=== PATIENT | male | born 1960 | race Hispanic/Latino ===

== ENCOUNTER 2019-04-18 06:13 | Day surgery (SDC) | payer OTHER ==
[2019-04-18] MEDS ORDERED: ECOTRIN PO ONE (06:39)
[2019-04-18] MEDS ORDERED: NACL 0.9% 500 ML 500 ML IV SCH (07:00)
[2019-04-18 07:19] LABS: Basophils % (Auto) 0.8 % (0.0-1.8); Eosinophils # (Auto) 0.2 K/mm3 (0.0-0.4); Eosinophils % (Auto) 3.3 % (0.0-4.3); Hematocrit 40.8 % (35.5-45.6); Hemoglobin 14.1 gm/dl (11.8-15.2); Lymphocytes # (Auto) 1.8 K/mm3 (1.2-5.4); Lymphocytes % (Auto) 39.1 % (13.4-35.0); Mean Corpuscular HGB Conc 35 % (32-34); Mean Corpuscular Volume 90 fl (84-94); Monocytes # (Auto) 0.4 K/mm3 (0.0-0.8); Monocytes % (Auto) 7.6 % (0.0-7.3); Platelet Count 180 K/mm3 (140-440); Red Blood Count 4.54 M/mm3 (3.65-5.03)
[2019-04-18 07:29] LABS: INR 0.93 (0.87-1.13); Partial Thromboplastin Time 23.3 Sec. (24.2-36.6)
[2019-04-18 07:31] LABS: BUN/Creatinine Ratio 19; Blood Urea Nitrogen 21 mg/dL (9-20); Calcium 9.5 mg/dL (8.4-10.2); Hemolysis Index 21
[2019-04-18] MEDS ORDERED: HEPARIN/NS 5000 UNIT/500ML(CATH LAB) 1,000 ML IR ONE (08:38)
[2019-04-18] MEDS ORDERED: HEPARIN 10,000 UNITS/10 ML ONE (08:38)
[2019-04-18] MEDS ORDERED: NITROGLYCERIN SYRINGE 3 ML ONE (08:39)
[2019-04-18] MEDS ORDERED: XYLOCAINE 2% INFILTRATI ONE (08:39)
[2019-04-18] MEDS ORDERED: CALAN ONE (08:39)
[2019-04-18] MEDS ORDERED: VERSED ONE (09:25)
[2019-04-18] MEDS ORDERED: SUBLIMAZE ONE (09:25)
--- NOTE | 2019-04-18 10:31 | Cardiac Catherization Report ---
REFERRING PHYSICIAN: Dr. Gil Sterling. INDICATION FOR PROCEDURE: The patient is an exceedingly pleasant 59-year-old gentleman with risk factors, abnormal stress test, referred for left heart catheterization. Risks, benefits, potential alternative explained at length prior to obtaining informed consent. PROCEDURE IN DETAIL: The patient was brought to the catheterization lab in a postabsorptive state, prepped and draped in sterile fashion. Geovany's test of the right hand was normal. A 2 mL of 2% lidocaine used to anesthetize the right wrist. A standard 6-Wallisian hydrophilic sheath used to cannulate the right radial artery via modified Seldinger technique. All exchanges performed to exchange a J-tip guidewire. JL3.5 catheter used to engage the left main. No dampening or ventricularization. Cineangiography performed in multiple projections. JR4 catheter used to cross the aortic valve under fluoroscopic guidance. Left ventriculography performed in 30 GARNER and 30 DAVID projections via hand injections, catheter flushed. Manual pullback performed with continuous pressure monitoring. Catheter used to engage the right coronary. No dampening or ventricularization. Cineangiography performed in all projections. Catheter removed from the body of wire, sheath removed. Manual pressure used to achieve hemostasis. I directly supervised the administration of moderate sedation with fentanyl and Versed from 9:28 to 9:50 a.m. There were no immediate complications. HEMODYNAMIC DATA: The patient remained in normal sinus rhythm throughout the procedure. Aortic pressure is 130/80, LV pressure is 130, LVEP of 15 mmHg. Left ventriculography reveals normal left ventricular systolic performance, estimated ejection fraction of 50-55%. No evidence of aortic stenosis. CORONARY ANATOMY: This is a right dominant system. Right coronary is a moderate sized vessel, courses AV groove, distally bifurcates in the posterior and posterolateral branch. No discrete stenosis noted. Left main is moderate sized vessel. No significant disease, bifurcates left anterior descending and circumflex. LAD is a moderate sized vessel, courses anterior intergroove, wraps around the apex, no significant disease in the LAD. LAD is on the smaller side. Normal tapering in the distal LAD, but no obstructive disease identified. Left circumflex, moderate sized vessel, courses AV groove. No significant disease noted. CONCLUSIONS: 1. No angiographic evidence of significant epicardial coronary disease in this right dominant system. 2. Normal left ventricular systolic performance, estimated ejection fraction of 50-55%. 3. Normal LVEDP. 4. No evidence of aortic stenosis. The patient is clinically stable. Standard radial care. Aggressive primary and secondary prevention measures. Follow up with Dr. Gil Sterling in the office. Results of procedure explained to the patient and family. All questions and concerns were addressed. JOB# [id number] LANA/HAKAN
--- NOTE | 2019-04-18 13:39 | Short Stay Summary ---
Short Stay Documentation Date of service: 04/18/19 - History H&P: obtained from office - Allergies and Medications Current Medications: Allergies No Known Allergies Allergy (Unverified 04/18/19 06:13) Home Medications Medication Instructions Recorded Confirmed Last Taken Type Lisinopril [Zestril TAB] 20 mg PO DAILY 04/18/19 04/18/19 04/17/19 History Active Medications Sodium Chloride (Nacl 0.9% 500 Ml) 500 mls @ 50 mls/hr IV DIRECT CUONG Stop: 04/18/19 16:59 Last Admin: 04/18/19 07:00 Dose: 50 mls/hr Documented by: - Brief post op/procedure progress note Date of procedure: 04/18/19 Pre-op diagnosis: abnormal stress test Post-op diagnosis: same Procedure: [facility] - see dictated cath report Anesthesia: local Estimated blood loss: none Condition: stable - Disposition Condition at discharge: Good Disposition: [id number] TO HOME OR SELFCARE - Discharge Diagnoses (1) Normal coronary arteries Status: Chronic Short Stay Discharge Plan Activity: advance as tolerated Wound: open to air, keep clean and dry, per your surgeon's advice Follow up with: PRIMARY CARE, [Primary Care Provider] - 7 Days JOY DUNAWAY MD [Staff Physician] - 7 Days Forms: CardCath PCI D/C Instructions, Work/School Excuse Out Patient
[2019-04-18 14:18] VITALS: BP 133/83
== END 2019-04-18 12:40 | disposition home or self-care (01) ==
LOC: CATHLABREC 06:13
PROVIDERS: ATTEND Internal Medicine
DX: R94.39 Abnormal result of other cardiovascular function study (principal); I10 Essential (primary) hypertension; Z79.899 Other long term (current) drug therapy; Z87.891 Personal history of nicotine dependence; Z90.5 Acquired absence of kidney; Z98.890 Other specified postprocedural states; Z85.89 Personal history of malignant neoplasm of other organs and systems; Z79.01 Long term (current) use of anticoagulants
CPT/HCPCS: 36415; 80048; 85025; 85610; 85730; 93005; 93010; 93458; 99156; C1894; J1644; J2250; J3010; J7040; Q9967